=== PATIENT | female | born 1995 | race Caucasian/White ===

== ENCOUNTER 2017-03-30 14:41 | Emergency (ER) | payer BC ==
[2017-03-30 15:05] VITALS: TEMP 98.2
--- NOTE | 2017-03-30 17:06 | EDPHY ---
HPI/HX/ROS/PE/MDM Narrative: CHIEF COMPLAINT: Abdominal pain, stiff neck. HPI: This patient is a 21 year old female complaining of abdominal pain, diarrhea, and headache onset , four days ago. She returned from a vacation in [place] with her family the day before her symptoms began. She describes her abdominal pain as the worst she has ever had, radiating to her back. The pain is generalized and intermittent. She has had diarrhea as well, most watery today. She has a headache and stiff neck. She has had a lack of appetite as well. She denies vomiting or fever, but endorses chills, hot flashed, and body aches on Thursday. She denies rash, dysuria, or other associated symptoms. She did have a brief rash on her neck while in [place] which has since resolved. Last menstrual period one week ago. No history of abdominal surgeries. REVIEW OF SYSTEMS: Aside from elements discussed in the HPI, a comprehensive 10-point review of systems was reviewed and is negative. PMH: Denies SOCIAL HISTORY: Lives in [place]. Friend at bedside. PHYSICAL EXAM: General:Patient is alert, in no acute distress. ENT:Eyes are normal to inspection. No photophobia. ENT inspection normal. Neck: Normal inspection. Full range of motion. Respiratory:No respiratory distress. Breath sounds normal bilaterally. Cardiovascular: Regular rate and rhythm. Strong peripheral pulses. Normal cap refill. Abdomen: Mild diffuse tenderness to palpation. There are no peritoneal signs. There are normal bowel sounds. Back: Normal to inspection. No tenderness to palpation. Skin: Normal color. No rash. Warm and dry. Extremities: Normal appearance. Full range of motion. Neuro: Oriented x3. Normal motor function. Normal sensory function. Portions of this note were transcribed by an ED scribe. I personally performed the history, physical exam, and medical decision making; and confirm the accuracy of the information in the transcribed note. ED Course: 21 year old female presents with abdominal pain and diarrhea after returning from travel in [place]. Physical exam reveals mild diffuse abdominal tenderness. Plan for labs including CBC, BMP, liver, and BHCG. If the patient can provide a stool sample, plan to proceed with GI pathogen analysis. Stool sample positive for Campylobacter and enteroaggregative E. coli. Plan to discharge home in good condition with prescription for Zithromax. Follow up and return precautions discussed. The patient is comfortable with this plan. MDM: This is a young healthy female with diarrhea and generalied abdominal and body aches after trip to [place]. Her abdomen is non-surgical and stool analysis reveals campylobacter and E.coli, which are likely cause of symptoms. We will treat her with azithromycin. She agrees with me that appendicitis or other abdominal pathology is much less likely and she refuses CTAP at this time. We discussed strict return precautions. - Data Points Laboratory Results: Laboratory Results 03/30/17 17:10 03/30/17 17:10 03/30/17 03/30/17 03/30/17 17:10 17:10 17:10 WBC 8.89 10^3/uL 10^3/uL (3.80-9.50) RBC 4.91 10^6/uL 10^6/uL (4.18-5.33) Hgb 14.4 g/dL g/dL (12.6-16.3) Hct 43.1 % % (38.0-47.0) MCV 87.8 fL fL (81.5-99.8) MCH 29.3 pg pg (27.9-34.1) MCHC 33.4 g/dL g/dL (32.4-36.7) RDW 14.3 % % (11.5-15.2) Plt Count 233 10^3/uL 10^3/uL (150-400) MPV 11.4 fL fL (8.7-11.7) Neut % (Auto) 69.9 % % (39.3-74.2) Lymph % (Auto) 20.6 % % (15.0-45.0) [place] % (Auto) 7.0 % % (4.5-13.0) Eos % (Auto) 1.6 % % (0.6-7.6) Baso % (Auto) 0.6 % % (0.3-1.7) Nucleat RBC Rel Count 0.0 % % (0.0-0.2) Absolute Neuts (auto) 6.22 10^3/uL 10^3/uL (1.70-6.50) Absolute Lymphs (auto) 1.83 10^3/uL 10^3/uL (1.00-3.00) Absolute Monos (auto) 0.62 10^3/uL 10^3/uL (0.30-0.80) Absolute Eos (auto) 0.14 10^3/uL 10^3/uL (0.03-0.40) Absolute Basos (auto) 0.05 10^3/uL 10^3/uL (0.02-0.10) Absolute Nucleated RBC 0.00 10^3/uL 10^3/uL (0-0.01) Immature Gran % 0.3 % % (0.0-1.1) Immature Gran # 0.03 10^3/uL 10^3/uL (0.00-0.10) Sodium 138 mEq/L mEq/L (134-144) Potassium 4.2 mEq/L mEq/L (3.5-5.2) Chloride 103 mEq/L mEq/L (97-110) Carbon Dioxide 22 mEq/l mEq/l (22-31) Anion Gap 13 mEq/L mEq/L (8-16) BUN 8 mg/dL mg/dL (7-23) Creatinine 0.8 mg/dL mg/dL (0.6-1.0) Estimated GFR > 60 Glucose 81 mg/dL mg/dL (70-100) Calcium 9.5 mg/dL mg/dL (8.5-10.4) Total Bilirubin 0.4 mg/dL mg/dL (0.1-1.4) Conjugated Bilirubin 0.3 mg/dL mg/dL (0.0-0.5) Unconjugated Bilirubin 0.1 mg/dL mg/dL (0.0-1.1) AST 23 IU/L IU/L (14-46) ALT 31 IU/L IU/L (9-52) Alkaline Phosphatase 68 IU/L IU/L (38-126) Total Protein 7.2 g/dL g/dL (6.3-8.2) Albumin 4.3 g/dL g/dL (3.5-5.0) Beta HCG, Qual NEGATIVE Medications Given: Discontinued Medications Ketorolac Tromethamine (Toradol) 30 mg IVP EDNOW ONE Stop: 03/30/17 18:08 Last Admin: 03/30/17 18:21 Dose: 30 mg Microbiology Results: MICROBIOLOGY 03/30/17 18:00 Stool Gastrointestinal Tract Panel (PCR) - Final Campylobacter Species E.coli Enteroaggregative(Eaec) General Time Seen by Provider: 03/30/17 17:05 Initial Vital Signs: Initial Vital Signs Temperature (C) 36.8 C 03/30/17 14:50 Heart Rate 101 H 03/30/17 14:50 Respiratory Rate 18 03/30/17 14:50 Blood Pressure 121/81 H 03/30/17 14:50 O2 Sat (%) 99 03/30/17 14:50 O2 Delivery Mode Room Air Allergies/Adverse Reactions: Penicillins Allergy (Intermediate, Verified 03/30/17 15:02) Hives Home Medications: Medication Instructions Recorded Azithromycin [Zithromax] 500 mg PO DAILY #3 tablet 03/30/17 MINOCYCLINE HCL 75 mg PO 03/30/17 Trisprintec 03/30/17 Departure - Departure Disposition: Home, Routine, Self-Care Clinical Impression: Campylobacter gastrointestinal tract infection, Gastrointestinal infection due to enteroadherent Escherichia coli Condition: Good Instructions: Traveler's Diarrhea (ED) Additional Instructions: 1. Stay well hydrated. 2. Take your Zithromax as prescribed. It is important that you finish your entire course of antibiotics even if you are feeling better. 2. Follow-up with your primary doctor within 72 hours. 3. Return to the Emergency Department for fever, chest pain, shortness of breath , increasing pain, or other worsening of condition. Referrals: KATE ROMERO [Other] - As per Instructions Prescriptions: Azithromycin [Zithromax] 500 mg PO DAILY #3 tablet Report Scribed for: Ron Goldberg Report Scribed by: Zoya Mitchell Date of Report: 03/30/17 Time of Report: 17:06
[2017-03-30 17:33] LABS: % IMMATURE GRANULYOCYTES 0.3 % (0.0-1.1); ABSOLUTE IMMATURE GRANULOCYTES 0.03 10^3/uL (0.00-0.10); ADD DIFF? NO; ADD MORPH? NO; ADD SCAN? NO; ATYPICAL LYMPHOCYTE FLAG 40 (0-99); FRAGMENT RBC FLAG 0 (0-99); HEMATOCRIT 43.1 % (38.0-47.0); HEMOGLOBIN 14.4 g/dL (12.6-16.3); LEFT SHIFT FLG 10 (0-99); LIPEMIA HEMOLYSIS FLAG 80 (0-99); MEAN CELL HEMOGLOBIN 29.3 pg (27.9-34.1); MEAN CELL HEMOGLOBIN CONCENTR. 33.4 g/dL (32.4-36.7); MEAN CELL VOLUME 87.8 fL (81.5-99.8); MEAN PLATELET VOLUME 11.4 fL (8.7-11.7); PLATELET CLUMPS FLAG 0 (0-99); PLATELET COUNT 233 10^3/uL (150-400); RED BLOOD CELL COUNT 4.91 10^6/uL (4.18-5.33); RED CELL DISTRIBUTION WIDTH 14.3 % (11.5-15.2)
[2017-03-30 17:48] LABS: ALANINE AMINOTRANSFERASE 31 IU/L (9-52); ALBUMIN 4.3 g/dL (3.5-5.0); ALKALINE PHOSPHATASE 68 IU/L (38-126); ANION GAP 13 mEq/L (8-16); ASPARTATE AMINOTRANSFERASE 23 IU/L (14-46); BILIRUBIN,TOTAL 0.4 mg/dL (0.1-1.4); BILIRUBIN-CONJUGATED 0.3 mg/dL (0.0-0.5); BILIRUBIN-UNCONJUGATED 0.1 mg/dL (0.0-1.1); CALCIUM 9.5 mg/dL (8.5-10.4); CARBON DIOXIDE 22 mEq/l (22-31); CHLORIDE 103 mEq/L (97-110); CREATININE 0.8 mg/dL (0.6-1.0); GLOMERULAR FILTRATION RATE > 60; GLUCOSE 81 mg/dL (70-100); POTASSIUM 4.2 mEq/L (3.5-5.2); SODIUM 138 mEq/L (134-144); TOTAL PROTEIN 7.2 g/dL (6.3-8.2)
[2017-03-30] MEDS ORDERED: KETOROLAC 30 MG/1 ML SDV IVP ONE (18:07)
[2017-03-30 20:13] VITALS: BP 131/74; PULSE 64; RESP 16; O2SAT 97
== END 2017-03-30 20:13 | disposition home or self-care (01) ==
DX: A04.5 Campylobacter enteritis (principal); B96.20 Unspecified Escherichia coli [E. coli] as the cause of diseases classified elsewhere
CPT/HCPCS: 96374; J1885